=== PATIENT | male | born 1970 | race Caucasian/White ===

== ENCOUNTER 2023-08-08 08:41 | Emergency (ER) | payer BC, OTHER ==
[2023-08-08] MEDS ORDERED: Acetaminophen 500 MG TAB ONE (09:16)
== END 2023-08-08 09:58 | disposition home or self-care (01) ==
LOC: ERS 08:41
DX: S40.812A Abrasion of left upper arm, initial encounter (principal); M25.512 Pain in left shoulder; V23.49XA Other motorcycle driver injured in collision with car, pick-up truck or van in traffic accident, initial encounter